=== PATIENT | female | born 1965 | race Caucasian/White ===

== ENCOUNTER 2021-05-15 08:29 | Outpatient (REF) | payer OTHER, SELFPAY ==
[2021-05-20 22:11] LABS: HPV 16 RNA NOT DETECTED (NOT DETECTED); HPV mRNA E6/E7 rflx Detected (Not Detected)
== END 2021-05-15 08:30 | disposition home or self-care (01) ==
LOC: HO.LAB 08:29
PROVIDERS: PCP Internal Medicine; Visit Provider Obstetrics & Gynecology
DX: Z01.411 Encounter for gynecological examination (general) (routine) with abnormal findings (principal); Z11.51 Encounter for screening for human papillomavirus (HPV); N87.0 Mild cervical dysplasia; N90.89 Other specified noninflammatory disorders of vulva and perineum
CPT/HCPCS: 87624; 87625; 88142

== ENCOUNTER 2021-05-30 08:58 | Outpatient (REF) | payer OTHER, SELFPAY | END 2021-05-30 08:59 | disposition home or self-care (01) | LOC: HO.LAB 08:58 | PROVIDERS: PCP Internal Medicine; Visit Provider Obstetrics & Gynecology | DX: N90.89 Other specified noninflammatory disorders of vulva and perineum (principal); B97.7 Papillomavirus as the cause of diseases classified elsewhere | CPT/HCPCS: 56605; 57454; 88305; 88312 ==

== ENCOUNTER → 2021-06-19 13:24 | Outpatient (BNVA) | payer OTHER, SELFPAY | PROVIDERS: Visit Provider Obstetrics & Gynecology | DX: B97.7 Papillomavirus as the cause of diseases classified elsewhere (principal); N90.89 Other specified noninflammatory disorders of vulva and perineum | CPT/HCPCS: 99212 ==

== ENCOUNTER → 2021-07-18 14:17 | Outpatient (BNVA) | payer OTHER, SELFPAY | PROVIDERS: PCP Internal Medicine; Visit Provider Obstetrics & Gynecology | DX: N90.89 Other specified noninflammatory disorders of vulva and perineum (principal) | CPT/HCPCS: 99212 ==

== ENCOUNTER 2021-08-19 08:18 | Outpatient (REF) | payer OTHER, SELFPAY ==
[2021-08-19 08:42] LABS: MANUAL DIFF FLAG NO
[2021-08-19 09:37] LABS: Basophils Percent Auto 0.4 % (0-2); Eosinophils Absolute Auto 0.2 X10*3/uL (0.0-0.4); Eosinophils Percent Auto 3.2 % (0-4); Hematocrit 45.6 % (37.0-47.0); Hemoglobin 14.9 g/dl (12.0-16.0); Imm Gran Abs Auto 0.01 X10*3/uL (0.00-0.03); Imm Gran Pct Auto 0.2 % (0.0-0.4); Lymphocytes Absolute Auto 1.8 X10*3/uL (1.2-4.9); Lymphocytes Percent Auto 34.7 % (20-40); Mean Corpuscular HGB Conc 32.7 g/dl (31.0-35.0); Mean Corpuscular Hemoglobin 29.5 pg (27.0-33.0); Mean Corpuscular Volume 90.3 fL (80.0-98.0); Mean Platelet Volume 10.1 fL (9.4-12.3); Monocytes Absolute Auto 0.5 X10*3/uL (0.1-1.2); Monocytes Percent Auto 8.9 % (2-11); Neutrophils Absolute Auto 2.7 x10*3/uL (2.0-8.3); Neutrophils Percent Auto 52.6 % (45-73); Platelet Count 271 X10*3/uL (160-400); Red Blood Count 5.05 X10*6/uL (4.20-5.50); Red Cell Distribution Width 11.9 % (11.0-16.0)
[2021-08-19 09:48] LABS: Alanine Aminotransferase 15 U/L (0-31); Albumin Level 4.1 g/dL (3.5-5.0); Alkaline Phosphatase 96 U/L (39-117); Anion Gap 11 (12-20); Aspartate Amino Transferase 17 U/L (5-31); Bilirubin Total 0.7 mg/dL (0.0-1.0); Blood Urea Nitrogen 17 mg/dL (9-16); Calcium 9.7 mg/dL (8.4-10.2); Carbon Dioxide 30 mmol/L (22-29); Chloride 101 mmol/L (96-108); Cholesterol 215 mg/dL; Estimated Glomerular Filt Rate > 60; Glucose Fasting 96 mg/dL (60-99); HDL Cholesterol 46 mg/dL; LDL Cholesterol Calculated 148 mg/dl; Potassium 4.8 mmol/L (3.3-5.1); Sodium 137 mmol/L (135-145); Total Protein 7.1 g/dL (6.5-8.0); Triglycerides 107 mg/dL
[2021-08-19 10:09] LABS: Thyroid Stimulating Hormone 0.49 uIU/mL (0.32-4.0)
== END 2021-08-19 08:19 | disposition home or self-care (01) ==
LOC: HO.LAB 08:18
PROVIDERS: PCP Internal Medicine; Visit Provider Internal Medicine
DX: Z00.00 Encounter for general adult medical examination without abnormal findings (principal); Z13.0 Encounter for screening for diseases of the blood and blood-forming organs and certain disorders involving the immune mechanism
CPT/HCPCS: 36415; 80053; 80061; 84443; 85025

== ENCOUNTER 2021-08-22 14:55 | Emergency (ER) | payer OTHER, SELFPAY ==
--- NOTE | ~2021-08-22 | CT_ITS ---
EXAMINATION: CT ABDOMEN AND PELVIS WITH CONTRAST CLINICAL INFORMATION: Diffuse abdominal pain. Rectal bleeding. COMPARISON: Abdominal ultrasound 12/15/2018 TECHNIQUE: Multidetector volumetric images were obtained from the superior aspect of the liver through the pubic symphysis following administration of 70 mL of Omnipaque 350 intravenous contrast. Sagittal and coronal reformatted images were obtained on the technologist's workstation. This CT examination was performed using dose optimization techniques as appropriate, variously including the following: *Automated exposure control *Adjustment of mA and/or kV according to patient size (this includes techniques or standardized protocols for targeted exams where dose is matched to indication/reason for exam; i.e. extremities or head) *Use of iterative reconstruction technique DLP: 743 mGy-cm FINDINGS: Visualized lung bases demonstrate mild dependent atelectasis. Partially visualized 1.7 cm nodular density of the left breast, nonspecific (image 2/751, series 4). The liver demonstrates normal size, contour and attenuation. There is an approximately 3 cm cyst of the left hepatic lobe. The gallbladder is normal in appearance. The pancreas, spleen and adrenal glands are unremarkable. Symmetrically enhancing kidneys. There is a 4 cm cyst within the lower pole of the left kidney which demonstrates subtle wall thickening medially. There is no hydronephrosis of either kidney. Normal caliber loops of small and large bowel. Circumferential mucosal thickening involving the splenic flexure and descending colon with mild adjacent pericolonic stranding. Normal appendix. Normal caliber abdominal aorta. No retroperitoneal lymphadenopathy. The bladder is normal in appearance. Unremarkable CT appearance of the uterus. 1.8 cm left adnexal cyst. No gross free pelvic fluid. No inguinal lymphadenopathy. Mild diffuse degenerative changes of the spine. Minimal anterolisthesis of L4 on L5. CT/CT abdomen pelvis w con IMPRESSION: -Diffuse circumferential mucosal thickening of the splenic flexure and descending colon with adjacent pericolonic stranding. Findings are most suggestive of colitis, likely infectious or inflammatory. -Hepatic and left renal cyst. Left renal cyst demonstrates mild wall thickening along its medial border. Further evaluation with nonemergent renal ultrasound may be warranted. -Partially visualized 1.7 cm nodular density of the left breast. A focal breast lesion is not excluded. Recommend correlation with recent mammogram/breast ultrasound if available. If not, nonemergent mammogram/breast ultrasound is recommended. Fleischner guidelines were followed.
[2021-08-22 16:04] VITALS: BP 118/75; PULSE 85; RESP 18; TEMP 36.8; O2SAT 96; BMI 30.9
[2021-08-22 18:04] LABS: MANUAL DIFF FLAG NO
[2021-08-22 18:06] LABS: Appearance Urine CLEAR; Color Urine YELLOW; Glucose Urine UA NEG (NEG); Leukocyte Esterase Urine NEG (NEG); Nitrite Urine NEG (NEG); PH 5.5 (5.0-8.0); Specific Gravity - Urine >= 1.030 (1.005-1.025); UACC Culture Trigger NO; Urine Blood 1+ (NEG); Urine Ketones NEG (NEG); Urine Protein NEG (NEG-TRACE)
[2021-08-22 18:07] LABS: Basophils Percent Auto 0.4 % (0-2); Eosinophils Absolute Auto 0.2 X10*3/uL (0.0-0.4); Eosinophils Percent Auto 2.3 % (0-4); Hematocrit 47.2 % (37.0-47.0); Hemoglobin 15.1 g/dl (12.0-16.0); Imm Gran Abs Auto 0.01 X10*3/uL (0.00-0.03); Imm Gran Pct Auto 0.1 % (0.0-0.4); Lymphocytes Absolute Auto 1.4 X10*3/uL (1.2-4.9); Lymphocytes Percent Auto 17.1 % (20-40); Mean Corpuscular Volume 90.8 fL (80.0-98.0); Mean Platelet Volume 9.3 fL (9.4-12.3); Monocytes Absolute Auto 0.6 X10*3/uL (0.1-1.2); Neutrophils Absolute Auto 5.8 x10*3/uL (2.0-8.3); Neutrophils Percent Auto 73.1 % (45-73); Platelet Count 264 X10*3/uL (160-400); White Blood Count 7.9 X10*3/uL (4.8-10.8)
[2021-08-22 18:14] LABS: WBC Urine 0 /HPF (0-4)
[2021-08-22 18:15] LABS: Bacteria Urine TRACE /LPF; RBC Urine 0-2 /HPF (0); Squamous Epithelial Cell Urine TRACE /LPF
[2021-08-22 18:19] LABS: Alanine Aminotransferase 19 U/L (0-31); Alkaline Phosphatase 100 U/L (39-117); Anion Gap 11 (12-20); Aspartate Amino Transferase 18 U/L (5-31); Bilirubin Total 0.3 mg/dL (0.0-1.0); Blood Urea Nitrogen 15 mg/dL (9-16); Calcium 9.5 mg/dL (8.4-10.2); Carbon Dioxide 29 mmol/L (22-29); Chloride 105 mmol/L (96-108); Creatinine Clr Calc Pharmacy 84.1; Estimated Glomerular Filt Rate > 60; Glucose Random 98 mg/dL (60-115); Potassium 4.8 mmol/L (3.3-5.1); Sodium 140 mmol/L (135-145); Total Protein 7.2 g/dL (6.5-8.0)
[2021-08-22 18:22] LABS: Influenza A Negative (Negative); Influenza B2 Negative (Negative)
[2021-08-22 18:40] VITALS: BP 128/79; PULSE 76; RESP 18; O2SAT 97
--- NOTE | 2021-08-22 18:41 | ED_ITS ---
HPI - GI Bleed General Chief complaint: GI Bleed Stated complaint: abd pain/blood in in stool Time Seen by Provider: 08/22/21 18:30 Source: patient Mode of arrival: ambulatory Limitations: no limitations History of Present Illness HPI Narrative: Patient comes to the emergency room complaining of diarrhea and rectal bleeding for 24 hours. Patient states that she has no significant abdominal pain, but feels very bloated. Patient had several episodes of diarrhea, then this morning patient started passing blood clots per rectum. Patient denies nausea or vomiting. No fever or chills. No history of Crohn's/ulcerative colitis. Patient had colonoscopy 3 years ago, states that she was told it was negative. Patient denies being on blood thinners. Patient denies chest pain, shortness of breath lightheadedness. Related Data Home Medications Medication Instructions Recorded Confirmed buprenorphine 12 mg-naloxone 3 mg 15 mg SUBLINGUAL DAILY 08/07/21 08/21/21 sublingual film (Suboxone) lorazepam 1 mg tablet 1 mg PO BID 08/07/21 08/21/21 Previous Rx's Medication Instructions Recorded lisinopril 20 mg tablet 20 mg PO DAILY #90 tab 07/25/21 clobetasol 0.05 % topical cream 1 appl TOPICAL BID 14 Days #45 g 08/07/21 levofloxacin 500 mg tablet 500 mg PO DAILY #9 tab 08/22/21 metronidazole 250 mg tablet 250 mg PO BID #19 tab 08/22/21 Allergies Allergy/AdvReac Type Severity Reaction Status Date / Time cortisone injections Allergy Unknown skin Uncoded 08/22/21 16:03 rash/burn Review of Systems Review of Systems: Constitutional : No Weight loss, No Fever, No Chills, No Night Sweats, No Fatigue, No Malaise ENT/Mouth : No Hearing loss, No Ear Pain, No Nasal Congestion, No Sinus Pain, No Hoarseness, No sore throat, No Rhinorrhea, No Swallowing Difficulty Eyes: No Eye Pain, No Swelling, No Redness, No Foreign Body, No Discharge, No Vision Changes Cardiovascular : No Chest Pain, No SOB, No Dyspnea on Exertion, No Orthopnea, No Edema, No Palpitations Respiratory : No Cough, No Sputum, No Wheezing, No Smoke Exposure, No Dyspnea Gastrointestinal : No Nausea, No Vomiting, complaining of Diarrhea, complaining of several episodes of rectal bleeding, passing blood clots per rectum. No Constipation, complaining of abdominal distension Genitourinary : no irregular bleeding, No Dysuria, No Urinary Frequency, No Hematuria, No Urinary Incontinence, No Urgency, No Flank Pain, No Urinary Flow Changes, No Hesitancy Musculoskeletal : No joint pain, No Myalgias, No Joint Swelling Skin : No Skin Lesions, No rash Neuro : No Weakness, No Numbness, No Paresthesias, No Loss of Consciousness, No Dizziness, No Headache Psych : No Anxiety/Panic, No Depression, No SI/HI/AH/VH, No Social Issues, Heme/Lymph: No Bruising, No Bleeding,No Lymphadenopathy Endocrine : No Polyuria, No Polydipsia, No Temperature Intolerance [facility] Past Medical History Medical History Dysplasia of cervix, low grade (BONG 1) HTN (hypertension) Substance abuse ANGELIA III (vulvar intraepithelial neoplasia III) Social History Social History Housing: Apartment Alcohol intake: current Alcohol intake frequency: holidays/special occasions only Patient Tobacco Use Status: Former Tobacco user e-Cigarette/Vaping Use: Never Used Second Hand Smoke Exposure: No Advance Directives: No service: No Current occupational status: employed Cognitive needs: No Hearing needs: No Vision needs: No Physical Exam Vital Signs: Vital Signs: Last Vital Signs Temp 98.3 F 08/22/21 16:04 Pulse 76 08/22/21 18:40 Resp 18 08/22/21 18:40 BP 128/79 08/22/21 18:40 Pulse Ox 97 08/22/21 18:40 BMI result Body Mass Index 30.9 Const: Other: Appearance: Alert. Oriented X3. No acute distress. Eyes: Pupils equal, round and reactive to light. ENT: Pharynx normal. Neck: Normal inspection. Neck supple. No lymph nodes noted. No crepitus CVS: Normal heart rate and rhythm. Pulses normal. Normal S1 and S2 Respiratory: No respiratory distress. Breath sounds normal. No Wheezing. No rales Abdomen: Soft and nontender. Slightly distended, no rigidity, no guarding, no rebound. Digital rectal exam positive for bright red blood per rectum, likely internal hemorrhoids Skin: Skin warm and dry. Normal skin color. Normal skin turgor. Extremities: No lower extremity edema. No Lacerations. No Rash Neuro: Oriented X 3. No motor deficit. No sensory deficit. Moving all extremities. No slurred speech. CN 2 through 12 grossly intact Psych: calm, cooperative, normal affect Course Course Course Narrative: Patient's hemoglobin and hematocrit are stable. At this time, patient states that she does not have significant abdominal pain, only rectal bleeding. Patient does not have abdominal pain. I discussed the labs and imaging with the patient, likely colitis. Patient was given the 1st dose of p.o. levofloxacin and metronidazole Discussed with the patient that if he has worsening abdominal pain, new symptoms, to return to emergency room MDM - GI Bleed Lab Data Result diagrams: 08/22/21 17:52 08/22/21 17:52 Labs: Lab Results 08/22/21 08/22/21 08/22/21 Range/Units 17:52 17:52 17:53 WBC 7.9 (4.8-10.8) X10*3/uL RBC 5.20 (4.20-5.50) X10*6/uL Hgb 15.1 (12.0-16.0) g/dl Hct 47.2 H (37.0-47.0) % MCV 90.8 (80.0-98.0) fL MCH 29.0 (27.0-33.0) pg MCHC 32.0 (31.0-35.0) g/dl RDW 12.0 (11.0-16.0) % Plt Count 264 (160-400) X10*3/uL MPV 9.3 L (9.4-12.3) fL Immature Gran % (Auto) 0.1 (0.0-0.4) % Neut % (Auto) 73.1 H (45-73) % Lymph % (Auto) 17.1 L (20-40) % [place] % (Auto) 7.0 (2-11) % Eos % (Auto) 2.3 (0-4) % Baso % (Auto) 0.4 (0-2) % Lymph # (Auto) 1.4 (1.2-4.9) X10*3/uL [place] # (Auto) 0.6 (0.1-1.2) X10*3/uL Eos # (Auto) 0.2 (0.0-0.4) X10*3/uL Baso # (Auto) 0.0 (0.0-0.2) X10*3/uL Abs Immat Gran (auto) 0.01 (0.00-0.03) X10*3/uL Absolute Neuts (auto) 5.8 (2.0-8.3) x10*3/uL Absolute Nucleated RBC 0.000 (0.0-0.012) X10*3/uL Nucleated RBC % (auto) 0.0 (0.0-0.2) /100WBC Sodium 140 (135-145) mmol/L Potassium 4.8 (3.3-5.1) mmol/L Chloride 105 (96-108) mmol/L Carbon Dioxide 29 (22-29) mmol/L Anion Gap 11 L (12-20) BUN 15 (9-16) mg/dL Creatinine 0.82 (0.5-1.4) mg/dL Estim Creat Clear Calc 84.1 Estimated GFR > 60 Random Glucose 98 (60-115) mg/dL Calcium 9.5 (8.4-10.2) mg/dL Total Bilirubin 0.3 (0.0-1.0) mg/dL AST 18 (5-31) U/L ALT 19 (0-31) U/L Alkaline Phosphatase 100 (39-117) U/L Total Protein 7.2 (6.5-8.0) g/dL Albumin 4.0 (3.5-5.0) g/dL Urine Color Urine Appearance Urine pH (5.0-8.0) Ur Specific [place] (1.005-1.025) Urine Protein (NEG-TRACE) MG/DL Urine Glucose (UA) (NEG) MG/DL Urine Ketones (NEG) MG/DL Urine Blood (NEG) Urine Nitrite (NEG) Ur Leukocyte Esterase (NEG) Urine RBC (0) /HPF Urine WBC (0-4) /HPF Ur Squamous Epith Cells /LPF Urine Bacteria /LPF Stool Occult Blood (NEGATIVE) Influenza Type A (BARON) Negative (Negative) Influenza Type B (BARON) Negative (Negative) Influenza A & B Note See Note 08/22/21 08/22/21 Range/Units 17:53 18:45 WBC (4.8-10.8) X10*3/uL RBC (4.20-5.50) X10*6/uL Hgb (12.0-16.0) g/dl Hct (37.0-47.0) % MCV (80.0-98.0) fL MCH (27.0-33.0) pg MCHC (31.0-35.0) g/dl RDW (11.0-16.0) % Plt Count (160-400) X10*3/uL MPV (9.4-12.3) fL Immature Gran % (Auto) (0.0-0.4) % Neut % (Auto) (45-73) % Lymph % (Auto) (20-40) % [place] % (Auto) (2-11) % Eos % (Auto) (0-4) % Baso % (Auto) (0-2) % Lymph # (Auto) (1.2-4.9) X10*3/uL [place] # (Auto) (0.1-1.2) X10*3/uL Eos # (Auto) (0.0-0.4) X10*3/uL Baso # (Auto) (0.0-0.2) X10*3/uL Abs Immat Gran (auto) (0.00-0.03) X10*3/uL Absolute Neuts (auto) (2.0-8.3) x10*3/uL Absolute Nucleated RBC (0.0-0.012) X10*3/uL Nucleated RBC % (auto) (0.0-0.2) /100WBC Sodium (135-145) mmol/L Potassium (3.3-5.1) mmol/L Chloride (96-108) mmol/L Carbon Dioxide (22-29) mmol/L Anion Gap (12-20) BUN (9-16) mg/dL Creatinine (0.5-1.4) mg/dL Estim Creat Clear Calc Estimated GFR Random Glucose (60-115) mg/dL Calcium (8.4-10.2) mg/dL Total Bilirubin (0.0-1.0) mg/dL AST (5-31) U/L ALT (0-31) U/L Alkaline Phosphatase (39-117) U/L Total Protein (6.5-8.0) g/dL Albumin (3.5-5.0) g/dL Urine Color YELLOW Urine Appearance CLEAR Urine pH 5.5 (5.0-8.0) Ur Specific [place] >= 1.030 H (1.005-1.025) Urine Protein NEG (NEG-TRACE) MG/DL Urine Glucose (UA) NEG (NEG) MG/DL Urine Ketones NEG (NEG) MG/DL Urine Blood 1+ H (NEG) Urine Nitrite NEG (NEG) Ur Leukocyte Esterase NEG (NEG) Urine RBC 0-2 (0) /HPF Urine WBC 0 (0-4) /HPF Ur Squamous Epith Cells TRACE /LPF Urine Bacteria TRACE /LPF Stool Occult Blood POSITIVE (NEGATIVE) Influenza Type A (BARON) (Negative) Influenza Type B (BARON) (Negative) Influenza A & B Note Discharge Plan Discharge Clinical Impression: Colitis Patient Disposition: Home, Self-Care Instructions: Colitis (ED) Additional Instructions: Please follow-up with your primary care physician tomorrow. If you have any worsening or new symptoms, please return to the emergency room or call 911 Prescriptions: New levofloxacin 500 mg tablet 500 mg PO DAILY Qty: 9 0RF metronidazole 250 mg tablet 250 mg PO BID Qty: 19 0RF No Action lisinopril 20 mg tablet 20 mg PO DAILY Qty: 90 8RF buprenorphine-naloxone [Suboxone] 12-3 mg film 15 mg sublingual DAILY 0RF lorazepam 1 mg tablet 1 mg PO BID 0RF clobetasol 0.05 % cream 1 appl topical BID 14 Days Qty: 45 3RF
[2021-08-22 18:51] LABS: OBS Int Ctl Valid YES; OBS1 POSITIVE (NEGATIVE)
[2021-08-22] MEDS: iohexoL 350 MG/ML 100 ML INFUS..BTL IV (19:22)
[2021-08-22] MEDS: metroNIDAZOLE 500 MG TABLET 250 MG PO (20:42)
[2021-08-22] MEDS: levoFLOXacin 500 MG TABLET PO (20:42)
[2021-08-22 20:43] VITALS: BP 124/70; PULSE 70; RESP 18; TEMP 36.9; O2SAT 98
== END 2021-08-22 20:44 | disposition home or self-care (01) ==
PROVIDERS: Emergency Provider Emergency Medicine; PCP Internal Medicine
DX: K52.9 Noninfective gastroenteritis and colitis, unspecified (principal); F11.20 Opioid dependence, uncomplicated
CPT/HCPCS: 74177; 80053; 81001; 82272; 85025; 87502; 99284; Q9967

== ENCOUNTER 2021-09-19 10:54 | Outpatient (REF) | payer OTHER, SELFPAY ==
--- NOTE | ~2021-09-19 | MM_ITS ---
EXAMINATION: MM DIAGNOSTIC DIGITAL BREAST TOMOSYNTHESIS, BILATERAL CLINICAL INFORMATION: Question of focal nodular density inferior lateral left breast on CT abdomen performed emergently for diffuse abdominal pain and rectal bleeding. The lifetime risk of breast cancer based on the Tyrer-Cuzick Model is 7%. COMPARISON: Mammography: 12/31/2017, 08/28/2016; CT abdomen 08/22/2021. TECHNIQUE: Digital breast tomosynthesis is performed in both the craniocaudal and mediolateral oblique views along with computer-aided detection (CAD). Synthesized 2D images are generated from the tomosynthesis. FINDINGS: The breasts are heterogeneously dense, which may obscure small masses (ACR BI-RADS breast composition Category c). Parenchymal pattern is similar to prior studies. There is no significant mass or architectural abnormality or developing density. Finding on recent CT likely represents margin of normal fibroglandular tissue in the CT [id number]. There are no abnormal calcifications. Small stable nodule anterior upper left breast on MLO view is stable. The axilla and skin contours are unremarkable. No significant changes from prior studies. Results are discussed with the patient at time of visit. MM/MM tomosynthesis diagnostic BI IMPRESSION: -No mammographic evidence of malignancy. -No significant changes from prior exams. ASSESSMENT: BI-RADS 2: Benign RECOMMENDATION: Routine annual mammography screening. This patient's information was entered into a reminder system with a target due date for their next mammogram.
== END 2021-09-19 10:55 | disposition home or self-care (01) ==
LOC: HO.MAMMO 10:54
PROVIDERS: Visit Provider Internal Medicine
DX: R92.2 Inconclusive mammogram (principal)
CPT/HCPCS: 77062; 77066

== ENCOUNTER → 2021-10-30 13:21 | Outpatient (BNVA) | payer OTHER, SELFPAY | PROVIDERS: PCP Internal Medicine; Referring Provider Internal Medicine; Visit Provider Nurse Practitioner | DX: K57.92 Diverticulitis of intestine, part unspecified, without perforation or abscess without bleeding (principal) | CPT/HCPCS: 99202 ==

== ENCOUNTER → 2022-06-25 09:54 | Outpatient (BNVA) | payer OTHER, SELFPAY | PROVIDERS: PCP Internal Medicine; Visit Provider Obstetrics & Gynecology | DX: Z13.89 Encounter for screening for other disorder (principal) ==

== ENCOUNTER 2022-07-09 13:30 | Outpatient (REF) | payer OTHER, SELFPAY ==
[2022-07-12 00:39] LABS: HPV mRNA E6/E7 rflx Not Detected (Not Detected)
== END 2022-07-09 13:31 | disposition home or self-care (01) ==
LOC: HO.LNP 13:30
PROVIDERS: PCP Internal Medicine; Visit Provider Obstetrics & Gynecology
DX: Z01.419 Encounter for gynecological examination (general) (routine) without abnormal findings (principal); B97.7 Papillomavirus as the cause of diseases classified elsewhere
CPT/HCPCS: 87624; 88142; 99211

== ENCOUNTER 2023-08-05 14:27 | Outpatient (AMB) | payer OTHER, SELFPAY ==
[2023-08-05 14:33] VITALS: BP 116/70; BMI 32.0
--- NOTE | 2023-08-05 14:33 | MHC.OFFVIS ---
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 No complaints. 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, low grade (BONG 1) HTN (hypertension) Surgical History History of colonoscopy Social History Housing: Apartment Alcohol intake: current Alcohol intake frequency: holidays/special occasions only Patient Tobacco Use Status: Former Tobacco user Tobacco use type: Cigarette e-Cigarette/Vaping Use: Never Used Second Hand Smoke Exposure: No service: No Current occupational status: employed Cognitive needs: No Hearing needs: No Vision needs: Yes Female Reproductive History Menstrual Age of Menarche: 10 control method: none Age of menopause: 46 Total pregnancies: 2 Full term: 1 Number of Living Children: 1 Ectopics: 1 Date of last pap smear: 07/10/22 History of abnormal pap smear: Yes (HPV Positive 2020) History of STI: No Date of Mammogram: 09/19/21 History of abnormal mammogram: Yes Review of Systems Const All systems reviewed & are unremarkable except as noted in HPI and below Card Reports as per HPI Resp Reports as per HPI GI Reports as per HPI and Reports no additional complaints Reports as per HPI Physical Exam Vital Signs: Last Vital Signs BP 116/70 08/05/23 14:33 BMI result Body Mass Index 32.0 Const General: cooperative, healthy appearing and comfortable Chest Chest palpation & inspection: normal inspection of the chest and normal palpation of entire chest wall Breast/axilla inspection: normal inspection of the breasts and normal inspection of the axillae Breast/axilla palpation: normal palpation of the breasts, normal palpation of the axillae and no axillary lymphadenopathy Resp Effort & Inspection: normal respiratory effort Auscultation: clear to auscultation bilaterally Percussion: percussion normal Cardio Palpation: normal PMI Rate: regular rate Rhythm: regular rhythm Heart sounds: no murmurs and no rubs Peripheral pulses: Peripheral pulses 2+ throughout GI Inspection: Yes normal to inspection Palpation (GI): Soft to palpation, nontender, no guarding, not rigid and No hepatosplenomegaly present Percussion: Yes normal to percussion Auscultation: normal bowel sounds Rectal Exam - Female: deferred General: Yes bladder normal to palpation External Female Exam: No lesion Speculum Exam - Vagina: normal appearance of the vagina, normal palpation, normal vaginal discharge and not erythematous Speculum Exam - Cervix: normal appearance of the cervix and normal palpation Bimanual exam- vagina & uterus: normal bimanual exam, normal palpation, uterine size normal, bladder normal to palpation, consistency normal and normal palpation Bimanual Exam- Adnexa, other: normal adnexae, no masses and no tenderness Assessment & Plan Assessment & Plan (1) Well woman exam: Code(s): Z01.419 - Encounter for gynecological examination (general) (routine) without abnormal findings Plan: Co testing not indicated this. Counseled the patient about the recommended dietary allowance of 1200 mg of Calcium & 600 IU of vitamin D. Mammogram ordered. The patient was instructed to perform monthly self-breast exams and periodic perineal inspections because of the history of ANGELIA 3 and to report any hard areas open sores or any abnormal findings and schedule annual exam in a year. All questions answered and the patient verbalized understanding. Orders: Orders MM tomosynthesis screening BI Today Z12.31 - Encounter for screening mammogram for malignant neoplasm of breast Coding Level of Care Code Est Pt Prev Care 40-64y(97388) Diagnoses Well woman exam Z01.419
== END 2023-08-05 14:54 | disposition home or self-care (01) ==
LOC: HO.HWS 14:28
PROVIDERS: PCP Internal Medicine; Visit Provider Obstetrics & Gynecology
DX: Z01.419 Encounter for gynecological examination (general) (routine) without abnormal findings (principal)
CPT/HCPCS: 99396

== ENCOUNTER → 2023-08-05 14:27 | Outpatient (BNVA) | payer OTHER, SELFPAY | PROVIDERS: PCP Internal Medicine; Visit Provider Obstetrics & Gynecology | DX: Z01.419 Encounter for gynecological examination (general) (routine) without abnormal findings (principal) | CPT/HCPCS: 99396 ==

== ENCOUNTER 2024-09-21 14:29 | Outpatient (AMB) | payer OTHER, SELFPAY ==
--- NOTE | 2024-09-21 14:30 | A.OFFPC_ITS ---
Vital Signs 09/21/24 14:39 Height 5 ft 6 in Weight 163 lb BMI 26.3 BP 138/76 Blood Pressure Location Lt brachial Position Sitting Pulse 86 Pulse Source Pulse Oximeter Temp 96.9 F Temp Source Temporal Artery Scan Pulse Oximetry (%) 97 Oxygen Delivery Method Room Air Intake Visit Reasons: KITTY from Dr. 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 Accompanied by: Self / Same As Patient Allergies cortisone injections Allergy (Unknown, Uncoded 09/21/24 14:45) skin rash/burn Medication List - Last Reconciled 09/21/24 by ULICES Chaudhry buprenorphine-naloxone 12-3 mg (Suboxone) 15 mg sublingual DAILY clobetasol 0.05% 1 appl topical BID 2 weeks clonazepam 1 mg PO BID PRN clotrimazole-betamethasone 1-0.05 % 1 appl topical BID PRN 2 weeks lisinopril 20 mg PO DAILY Tobacco use date assessed: 09/21/24 Dental Screening Dental Screen Date: 09/21/24 Did you have a dental visit in the last 12 months?: Yes Did you have a dental problem in the last 6 months where you did not have access to dental care?: No Was dental information given to patient?: Patient has dentist HPI KITTY from Dr. 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 HPI Details The patient is a 59-year-old female presenting to transition care from Dr. Santiago who retired [facility]: hypertension, substance use disorder management, and grief-related psychological symptoms. Lisinopril is currently prescribed for blood pressure management, alongside clonazepam for episodic anxiety relief. The patient?s bereavement includes highly emotional losses of several close relatives, resulting in stress, weight change, and emotional volatility. Maintaining recovery in substance use, she takes Suboxone which was initiated approximately seven years ago in [place], and now she expresses intent to eventually cease it due to concerns around age-related cardiovascular risks. Past medical evaluations confirmed diverticulitis and possibly related colitis after episodes of significant bright red rectal bleeding in 2021. The patient also notes previous preventive procedures for HPV-related precancerous vulvar lesions, achieving clearance prior to experiencing intestinal symptoms. Regular mammograms have not detect any breast lesions despite initial concerns saw on abdominal CT. Her historical lipid panel raised concerns, including earlier LDL results elevated beyond desired thresholds, prompting current trials of natural cholesterol-lowering interventions. She shares awareness of common conflicting screening advice but understands regularity remains crucial for thorough health maintenance. Scheduled routine preventative screenings and therapeutic balance amidst ongoing life adjustments were emphasized during the visit, with agreed follow-up arrangements to revisit symptomatic and goal-oriented progress. [facility] Medical History Substance abuse ANGELIA III (vulvar intraepithelial neoplasia III) Dysplasia of cervix, low grade (BONG 1) HTN (hypertension) Surgical History History of colonoscopy Social History Housing: Apartment Alcohol intake: current Alcohol intake frequency: holidays/special occasions only Patient Tobacco Use Status: Former Tobacco user Tobacco use type: Cigarette e-Cigarette/Vaping Use: Never Used Second Hand Smoke Exposure: No service: No Current occupational status: employed Cognitive needs: No Hearing needs: No Vision needs: Yes Female Reproductive History Menstrual Age of Menarche: 10 Questionnaire PHQ-9 Over the last 2 weeks, how often have you been bothered by any of the following problems? 1. Little interest or pleasure in doing things: not at all 2. Feeling down, depressed, or hopeless: not at all 3. Trouble falling or staying asleep, or sleeping too much: not at all 4. Feeling tired or having little energy: not at all 5. Poor appetite or overeating: not at all 6. Feeling bad about yourself - or that you are a failure or have let yourself or your family down: not at all 7. Trouble concentrating on things, such as reading the newspaper or watching television: not at all 8. Moving or speaking so slowly that other people could have noticed. Or the opposite - being so fidgety or restless that you have been moving around a lot more than usual: not at all 9. Thoughts that you would be better off or of hurting yourself in some way: not at all Total score: 0 Depression Screening Interpretation: Negative Depression Screening Done: Yes 80229 - PHQ-9 Billing: Yes Source: Developed by Drs. Tj Chapa, Juliet B.W. Jose Alejandro Vega and colleagues, with an educational jean from [employer]. Thrive Questionnaire Date Thrive assessed: 09/21/24 I am a: Parent/Caregiver What is your living situation today?: I have a steady place to live Within the past 12 months, did the food you bought not last and you didn't have the money to get more?: Never true Within the past 12 months, did you worry whether your food would run out before you got money to buy more?: Sometimes True Do you have trouble paying for medicines?: No Do you have trouble getting transportation to medical appointments?: No Do you have trouble paying your heating and electricity bill?: No Do you have trouble taking care of your child, family member or friend?: No Do you have trouble with day-to-day activities such as bathing, preparing meals, shopping, managing finances, etc.?: No Are you currently unemployed and looking for a job?: No Are you interested in more education?: I choose not to answer this question Please select the resources that you would like help with: None Currently or been in a relationship where the following occur: No concerns reported THRIVE Score: 1 AUDIT C Alcohol Use Questionnaire (AUDIT-C) 1. How often do you have a drink containing alcohol?: Never 3. How often do you have six or more drinks on one occasion?: Never Total Score: 0 KEMAR-7 AMB Questionnaire KEMAR-7 Date KEMAR - 7 assessed: 09/21/24 Feeling nervous, anxious, or on edge: 3 = Nearly every day Not being able to stop or control worryin = More than half the days Worrying too much about different things: 3 = Nearly every day Being so restless that it is hard to sit still: 0 = Not at all Becoming easily annoyed or irritable: 0 = Not at all Feeling afraid as if something awful might happen: 3 = Nearly every day Source: Developed by Drs. Tj Chapa, Jose Alejandro Hairston and colleagues, with an educational jean from [employer]. KEMAR-7 Assessment Billing KEMAR-7 Assessment Tool: KEMAR-7 Assessment 73773 Review of Systems Const Denies headache(s) Eyes Denies loss of vision ENT Denies vertigo, Denies dizziness, Denies headache(s) and Denies sore throat Card Denies chest pain, Denies leg edema and Denies lightheadedness Resp Denies cough, Denies hemoptysis and Denies wheezing GI Denies abdominal pain, Denies melena, Denies constipation, Denies diarrhea and Denies vomiting Denies urinary frequency, Denies dysuria and Denies urinary urgency Neuro Denies Abnormal speech present, Denies behavioral changes, Denies vertigo, Denies dizziness, Denies headache(s), Denies loss of vision and Denies memory loss Psych Reports anxiety, Denies behavioral changes, Reports depression, Denies memory loss and Denies panic attacks Mehrdad/Lymph Denies easy bleeding and Denies easy bruising Aller/Immun Denies wheezing Physical exam (Primary Care) Vital Signs: Last Vital Signs Temp 96.9 F 09/21/24 14:39 Pulse 86 09/21/24 14:39 BP 138/76 09/21/24 14:39 Pulse Ox 97 09/21/24 14:39 Oxygen Delivery Method Room Air 09/21/24 14:39 BMI result Body Mass Index 26.3 Tobacco/Smoking Status: Tobacco use Status Tobacco use date assessed 09/21/24 09/21/24 14:45 Patient Tobacco Use Status Former Tobacco user 09/21/24 14:30 Tobacco use type Cigarette 09/21/24 14:30 e-Cigarette/Vaping Use Never Used 09/21/24 14:30 PHQ-9: PHQ-9 Score PHQ-9: Total score 0 09/21/24 14:45 Depression Screening Interpretation: Negative Thrive Assessment: Date of Thrive Assessment Date Thrive assessed 09/21/24 09/21/24 14:45 Currently or been in a relationship where the following occur: No concerns reported Const General: healthy appearing, no acute distress, alert and awake Nutritional Appearance: well nourished Orientation/consciousness: oriented to person, oriented to place and oriented to time HENMT Ears: external ears normal General nose exam: Normal external nose present Eyes Conjunctivae: conjunctivae normal Sclerae: sclerae normal Pupils: Equal, round and reactive pupils present Neck Neck: Yes no lymphadenopathy and Yes no JVD Thyroid: Thyroid normal Carotids: no bruits Resp Effort & Inspection: normal respiratory effort and not tachypneic Auscultation: no crackles, no rales, no rhonchi and no wheezes Cardio Rate: regular rate Rhythm: regular rhythm Heart sounds: no murmurs and normal S1 and S2 GI Palpation (GI): Soft to palpation, nontender, no hepatomegaly and no splenomegaly Auscultation: normal bowel sounds Skin General skin exam: no rashes or lesions noted and dry skin Neuro General: oriented to person, oriented to place and oriented to time Cranial nerves: Yes Equal, round and reactive pupils present Speech: No Abnormal speech present Gait exam (Neuro): Normal gait present Motor exam (neuro): no tremor noted Extrem Right upper extremity: full ROM Left upper extremity: full ROM Right lower extremity: full ROM; no edema Left lower extremity: full ROM; no edema Psych Mental Status: mental status grossly normal Speech and movement: Normal speech and movement present Affect: normal affect Attitude: cooperative Thought process: Normal thought process present Coding Level of Care Code Est Pt Level 4 (69425) Diagnoses Substance abuse F19.10 Hypertension, unspecified type I10 Hypertension type: unspecified Anxiety F41.9 Additional Codes KEMAR-7 Assessment Billing - KEMAR-7 Assessment Tool: KEMAR-7 Assessment 92716 ([id number]) PHQ-9 - 62981 - PHQ-9 Billing: Yes ([id number]) Time Spent (min) 38 Assessment & Plan Assessment & Plan (1) Substance abuse: Code(s): F19.10 - Other psychoactive substance abuse, uncomplicated Category: Medical (2) HTN (hypertension): Code(s): I10 - Essential (primary) hypertension Category: Medical Qualifiers: Hypertension type: unspecified Qualified Code(s): I10 - Essential (primary) hypertension (3) Anxiety: Code(s): F41.9 - Anxiety disorder, unspecified Category: Medical Plan Continuing Lisinopril use and clonazepam adaptation strategically addresses primary blood pressure and anxiety management, respectively. Sustained therapeutic engagement will provide psychological anchor, reevaluating Suboxone alignment once stress declination is clearer. Periodic lipid panel analysis will guide cholesterol-level monitoring, reinforcing a selective non-pharmaceutical approach. Normative mammogram and GI evaluations check continuity remain foundational for maintenance, bolstering proactive care objectives. Orders: Orders Complete Blood Count Auto Diff Today I10 - Essential (primary) hypertension, K 57.92 - Diverticulitis of intestine, part unspecified, without perforation or abscess without bleeding, Z00.00 - Encounter for general adult medical examination without abnormal findings UA CC w/rflx Micro + Cult Today I10 - Essential (primary) hypertension, K57.92 - Diverticulitis of intestine, part unspecified, without perforation or abscess without bleeding, Z00.00 - Encounter for general adult medical examination without abnormal findings TSH reflex Free T4 Today I10 - Essential (primary) hypertension, K57.92 - Diverticulitis of intestine, part unspecified, without perforation or abscess without bleeding, Z00.00 - Encounter for general adult medical examination without abnormal findings Comprehensive [place]. Panel Fast Today I10 - Essential (primary) hypertension, K57.92 - Diverticulitis of intestine, part unspecified, without perforation or abscess without bleeding, Z00.00 - Encounter for general adult medical examination without abnormal findings Vitamin D 25-OH Total Today I10 - Essential (primary) hypertension, K57.92 - Diverticulitis of intestine, part unspecified, without perforation or abscess without bleeding, Z00.00 - Encounter for general adult medical examination without abnormal findings Lipid Panel Today I10 - Essential (primary) hypertension, K57.92 - Diverticulitis of intestine, part unspecified, without perforation or abscess without bleeding, Z00.00 - Encounter for general adult medical examination without abnormal findings Medications: Refilled lisinopril 20 mg PO DAILY 90 tabs 8RF
[2024-09-21 14:39] VITALS: BP 138/76; PULSE 86; TEMP 36.1; O2SAT 97; BMI 26.3
--- OUTSIDE RECORDS SUMMARY | 2024-09-21 16:53 | XMS_ITS | Clinical Summary ---
Author Organization [address] Address [address] [place] [phone] Phone Care Team Providers Care Landscape Manager Name Role Phone Priyank Santiago MD Primary Care Provider [phone] Allergies Active Allergy Reactions Criticality Noted Date Comments Cortisone 12/13/2017 Immunizations Name Administration Dates Next Due Tdap 12/13/2017 Social History Tobacco Use Types Packs/Day Years Used Date Smoking Tobacco: Former Smokeless Tobacco: Never Alcohol Use Standard Drinks/Week Comments No 0 (1 standard drink = 0.6 oz pur e alcohol) Comments Unknown Sex and Gender Information Value Date Recorded Sex Assigned at Not on file Legal Sex Female 5:01 PM EDT Gender Identity Not on file Sexual Orientation Not on file Last Filed Vital Signs Vital Sign Reading Time Taken Comments Blood Pressure 128/75 12/13/2017 9:23 PM EDT Pulse 78 12/13/2017 9:23 PM EDT Temperature 36.8 ??C (98.3 ??F) 12/13/2017 9:23 PM ED T Respiratory Rate 17 12/13/2017 9:23 PM EDT Oxygen Saturation 100% 12/13/2017 9:23 PM EDT Inhaled Oxygen Concentration - - Weight 81.6 kg (180 lb) 12/13/2017 5:08 PM EDT Height 167.6 cm (5' 6 ) 12/13/2017 5:08 PM EDT Body Mass Index 29.05 12/13/2017 5:08 PM EDT Plan of Treatment Health Maintenance Due Date Last Done Comments HIV screening 02/23/1977 Hepatitis C screening 02/23/1982 Cervical cancer screening 02/23/1985 Breast cancer screening 2004 Lipid disorder screening 2004 Colon cancer screening, Colonoscopy 02/23/2009 Diabetes screening 02/23/2009 Pneumococcal Vaccine (50+ ye ars) (1 of 1 - PCV) 02/23/2014 Shingles vaccine (Shingrix) (1 of 2 - Shingrix (RZV) 2 Dose Standard Series) 02/23/2014 Covid-19 vaccine series (1 - 2023- season) 2024 Influenza vaccine 02/08/2025 Tetanus adult (Td q 10,TDAP once) 12/14/2027 018 RSV Immunization (1 - 1-dose 75+ series) 02/23/2039 Meningococcal Vaccine Aged Out No walter harshil eligible based on patient's age to complete this topic Pneumococcal Vaccine (2 - 49 years) Aged Out No longer eligible b ased on patient's age to complete this topic Insurance [id number] MEDICAID [id number] MEDICAID [id number] MEDICAID Care Teams Landscape Manager Relationship Specialty Start Date End Date Priyank Santiago MD [address] [place] [address] [place] [phone] PCP - General Internal Medicine 12/13/17
== END 2024-09-21 15:06 | disposition home or self-care (01) ==
LOC: HO.HMCH 14:29
PROVIDERS: PCP Internal Medicine
DX: F19.10 Other psychoactive substance abuse, uncomplicated (principal); I10 Essential (primary) hypertension; F41.9 Anxiety disorder, unspecified

== ENCOUNTER → 2024-09-21 14:29 | Outpatient (BNVA) | payer OTHER, SELFPAY | PROVIDERS: PCP Internal Medicine | DX: F19.10 Other psychoactive substance abuse, uncomplicated (principal); F41.9 Anxiety disorder, unspecified; I10 Essential (primary) hypertension | CPT/HCPCS: 96127; 99212 ==

== ENCOUNTER 2025-02-01 08:51 | Outpatient (REF) | payer OTHER, SELFPAY ==
[2025-02-01 09:22] LABS: MANUAL DIFF FLAG NO
--- OUTSIDE RECORDS SUMMARY | 2025-02-01 09:24 | XMS_ITS | Clinical Summary ---
Author Organization [address] Address [address] [place] [phone] Phone Care Team Providers Care Cafe Attendant Name Role Phone Priyank Santiago MD Primary Care Provider [phone] Allergies Active Allergy Reactions Criticality Noted Date Comments Cortisone 12/13/2017 Immunizations Immunization Administration Dates Next Due Tdap 12/13/2017 Social [...] 78 12/13/2017 9:23 PM EDT Temperature 36.8 C (98.3 F) 12/13/2017 9:23 PM EDT Respiratory Rate 17 12/13/2017 9:23 PM EDT [...] (1 - 1-dose 75+ series) 02/23/2039 Meningococcal B Vaccine Aged Out No l onger eligible based on patient's age to complete this topic Meningococcal Vaccine Aged Out No walter harshil eligible based on patient's age to complete this topic Insurance [id number] MEDICAID [id number] MEDICAID [id number] MEDICAID Care Teams Cafe Attendant Relationship Specialty Start Date End Date Priyank Santiago MD [address] [place] [address] [place] [phone] PCP - General Internal Medicine 12/13/17
[2025-02-01 09:52] LABS: Hematocrit 40.4 % (37.0-47.0); Hemoglobin 13.6 g/dl (12.0-16.0); Imm Gran Abs Auto 0.01 X10*3/uL (0.00-0.03); Imm Gran Pct Auto 0.2 % (0.0-0.4); Lymphocytes Absolute Auto 1.6 X10*3/uL (1.2-4.9); Mean Corpuscular HGB Conc 33.7 g/dl (31.0-35.0); Mean Corpuscular Hemoglobin 29.8 pg (27.0-33.0); Mean Corpuscular Volume 88.6 fL (80.0-98.0); NRBC Abs Auto 0.000 X10*3/uL (0.0-0.012); NRBC Pct Auto 0.0 /100WBC (0.0-0.2); Platelet Count 227 X10*3/uL (160-400); Red Blood Count 4.56 X10*6/uL (4.20-5.50); White Blood Count 4.8 X10*3/uL (4.8-10.8)
[2025-02-01 10:23] LABS: Alanine Aminotransferase 14 U/L (0-31); Albumin Level 4.2 g/dL (3.5-5.0); Alkaline Phosphatase 80 U/L (39-117); Anion Gap 12 (12-20); Aspartate Amino Transferase 20 U/L (5-31); Blood Urea Nitrogen 15 mg/dL (9-16); Calcium 9.4 mg/dL (8.4-10.2); Carbon Dioxide 28 mmol/L (22-29); Chloride 106 mmol/L (96-108); Cholesterol 204 mg/dL (<200); Estimated Glomerular Filt Rate > 60; HDL Cholesterol 48 mg/dL (>40); Potassium 4.1 mmol/L (3.3-5.1); Sodium 142 mmol/L (135-145); Total Protein 6.9 g/dL (6.5-8.0); Triglycerides 100 mg/dL (<150)
== END 2025-02-01 08:52 | disposition home or self-care (01) ==
LOC: HO.LAB 08:51
DX: Z00.00 Encounter for general adult medical examination without abnormal findings (principal); K57.92 Diverticulitis of intestine, part unspecified, without perforation or abscess without bleeding; I10 Essential (primary) hypertension
CPT/HCPCS: 36415; 80053; 80061; 82306; 84443; 85025

== ENCOUNTER 2025-03-01 15:47 | Outpatient (AMB) | payer OTHER, SELFPAY ==
--- NOTE | 2025-03-01 15:56 | MHC.PC.OV ---
Vital Signs 03/01/25 15:57 Height 5 ft 6 in Weight 155 lb 4 oz BMI 25.1 BP 136/68 Blood Pressure Location Lt brachial Position Sitting Pulse 90 Pulse Source Pulse Oximeter Temp 97.0 F Temp Source Temporal Artery Scan Pulse Oximetry (%) 97 Oxygen Delivery Method Room Air Intake Visit Reasons: hld/htn, resched Allergies cortisone injections Allergy (Unknown, Uncoded 03/01/25 16:17) skin rash/burn Medication List - Last Reconciled 03/01/25 by ULICES Chaudhry buprenorphine-naloxone 8-2 mg 1.5 tabs sublingual DAILY clobetasol 0.05% 1 appl topical BID 2 weeks clonazepam 1 mg PO BID PRN clotrimazole-betamethasone 1-0.05 % 1 appl topical BID PRN 2 weeks lisinopril 20 mg PO DAILY Tobacco use date assessed: 03/01/25 Dental Screening Dental Screen Date: 03/01/25 Did you have a dental visit in the last 12 months?: No Did you have a dental problem in the last 6 months where you did not have access to dental care?: No Was dental information given to patient?: No HPI hld/htn, resched HPI Details The patient is a 60-year-old female presenting for a routine follow-up to monitor her cholesterol levels and blood pressure. The patient has a history of hyperlipidemia, with recent lab results showing a decrease in LDL cholesterol from 148 mg/dL to 136 mg/dL, indicating improvement. She is managing her cholesterol levels through natural methods and regular monitoring. The patient reports a history of hematuria, with a small amount of blood detected in her urine during a previous test in 2021. Potential causes discussed include kidney stones, cysts, or elevated blood pressure, but no definitive cause has been identified. The patient is also experiencing prehypertension, with recent blood pressure readings around 136/68 mmHg. She is aware of the changing guidelines for blood pressure management and is comfortable with her current readings. [facility] Medical History Substance abuse ANGELIA III (vulvar intraepithelial neoplasia III) Dysplasia of cervix, low grade (BONG 1) HTN (hypertension) Surgical History History of colonoscopy Social History Housing: Apartment Alcohol intake: current Alcohol intake frequency: holidays/special occasions only Patient Tobacco Use Status: Former Tobacco user Tobacco use type: Cigarette e-Cigarette/Vaping Use: Never Used Second Hand Smoke Exposure: No service: No Current occupational status: employed Cognitive needs: No Hearing needs: No Vision needs: Yes Female Reproductive History Menstrual Age of Menarche: 10 Questionnaire PHQ-9 Over the last 2 weeks, how often have you been bothered by any of the following problems? 1. Little interest or pleasure in doing things: not at all 2. Feeling down, depressed, or hopeless: not at all 3. Trouble falling or staying asleep, or sleeping too much: not at all 4. Feeling tired or having little energy: not at all 5. Poor appetite or overeating: not at all 6. Feeling bad about yourself - or that you are a failure or have let yourself or your family down: not at all 7. Trouble concentrating on things, such as reading the newspaper or watching television: not at all 8. Moving or speaking so slowly that other people could have noticed. Or the opposite - being so fidgety or restless that you have been moving around a lot more than usual: not at all 9. Thoughts that you would be better off or of hurting yourself in some way: not at all Total score: 0 Source: Developed by Drs. Tj Chapa, Juliet Vega, Jose Alejandro Chavez and colleagues, with an educational jean from [employer]. 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 What is your living situation today?: I have a steady place to live Within the past 12 months, did the food you bought not last and you didn't have the money to get more?: Never true Within the past 12 months, did you worry whether your food would run out before you got money to buy more?: Sometimes True Do you have trouble paying for medicines?: No Do you have trouble getting transportation to medical appointments?: No Do you have trouble paying your heating and electricity bill?: No Do you have trouble taking care of your child, family member or friend?: No Do you have trouble with day-to-day activities such as bathing, preparing meals, shopping, managing finances, etc.?: No Are you currently unemployed and looking for a job?: No Are you interested in more education?: I choose not to answer this question Please select the resources that you would like help with: None Currently or been in a relationship where the following occur: No concerns reported THRIVE Score: 1 AUDIT C Alcohol Use Questionnaire (AUDIT-C) 1. How often do you have a drink containing alcohol?: Never 3. How often do you have six or more drinks on one occasion?: Never Total Score: 0 KEMAR-7 AMB Questionnaire KEMAR-7 Date KEMAR - 7 assessed: 09/21/24 Feeling nervous, anxious, or on edge: 3 = Nearly every day Not being able to stop or control worryin = More than half the days Worrying too much about different things: 3 = Nearly every day Being so restless that it is hard to sit still: 0 = Not at all Becoming easily annoyed or irritable: 0 = Not at all Feeling afraid as if something awful might happen: 3 = Nearly every day Source: Developed by Drs. Tj Chapa, Juliet Vega, Jose Alejandro Chavez and colleagues, with an educational jean from [employer]. Review of Systems Const Denies chills, Denies fatigue, Denies fever(s), Denies headache(s), Denies malaise and Denies weakness Eyes Denies blurry vision, Denies change in vision, Denies irritation and Denies itchy eyes ENT Denies dysphagia, Denies dizziness, Denies otalgia, Denies headache(s), Denies nasal congestion, Denies neck pain, Denies odynophagia and Denies sore throat Card Denies rapid heart rate, Denies irregular heart rhythm, Denies palpitations and Denies dyspnea Resp Denies chest congestion, Denies cough, Denies dyspnea and Denies wheezing GI Denies abdominal pain, Denies bloating, Denies constipation, Denies dysphagia, Denies heartburn, Denies diarrhea, Denies nausea, Denies odynophagia and Denies vomiting Denies hematuria, Denies urinary frequency, Denies dysuria and Denies urinary urgency Musc Denies back pain, Denies arthralgias, Denies joint swelling, Denies muscle weakness and Denies neck pain Skin/Breast Denies change in pigmentation, Denies lesions, Denies rash and Denies unusual bruising Neuro Denies dizziness, Denies headache(s), Denies paresthesias and Denies weakness Psych Reports anxiety Endo Denies fatigue and Denies palpitations Aller/Immun Denies itchy eyes and Denies wheezing Physical exam (Primary Care) Vital Signs: Last Vital Signs Temp 97.0 F 03/01/25 15:57 Pulse 90 03/01/25 15:57 BP 136/68 03/01/25 15:57 Pulse Ox 97 03/01/25 15:57 Oxygen Delivery Method Room Air 03/01/25 15:57 BMI result Body Mass Index 25.1 Tobacco/Smoking Status: Tobacco use Status Tobacco use date assessed 03/01/25 03/01/25 16:01 Patient Tobacco Use Status Former Tobacco user 03/01/25 16:01 Tobacco use type Cigarette 03/01/25 16:01 e-Cigarette/Vaping Use Never Used 03/01/25 16:01 PHQ-9: PHQ-9 Score PHQ-9: Total score 0 03/01/25 16:22 Thrive Assessment: Date of Thrive Assessment Date Thrive assessed 09/14/24 03/01/25 16:01 Currently or been in a relationship where the following occur: No concerns reported Const General: cooperative, healthy appearing, comfortable and no acute distress Orientation/consciousness: patient oriented x3 HENMT Head: Yes normocephalic Ears: hearing grossly normal bilaterally General nose exam: Normal external nose present Eyes General: appearance normal, both eyes and all related structures Conjunctivae: conjunctivae normal Neck Neck: Yes full ROM and Yes no lymphadenopathy Resp Effort & Inspection: normal respiratory effort Auscultation: clear to auscultation bilaterally, no crackles, no rales, no rhonchi and no wheezes Cardio Rate: regular rate Rhythm: regular rhythm Skin General skin exam: no rashes or lesions noted Neuro General: patient oriented x3 Gait exam (Neuro): Normal gait present Extrem General: Yes normal to inspection, Yes full ROM and No edema Psych Affect: normal affect Attitude: cooperative Insight: Good insight present (Psych) Judgement: Good judgement present (Psych) Results Reviewed Results Reviewed: Laboratory Tests 02/01/25 09:18 WBC 4.8 RBC 4.56 Hgb 13.6 Hct 40.4 MCV 88.6 MCH 29.8 MCHC 33.7 RDW 12.0 Plt Count 227 MPV 10.3 Sodium 142 Potassium 4.1 Chloride 106 Carbon Dioxide 28 Anion Gap 12 BUN 15 Creatinine 0.68 Estimated GFR > 60 Fasting Glucose 92 Calcium 9.4 Total Bilirubin 0.5 AST 20 ALT 14 Alkaline Phosphatase 80 Total Protein 6.9 Albumin 4.2 Triglycerides 100 Cholesterol 204 H LDL Cholesterol, Calc 136 H HDL Cholesterol 48 25-OH Vitamin D Total 36.7 TSH 0.49 Coding Level of Care Code Est Pt Level 3 (07926) Diagnoses Hypertension, unspecified type I10 Hypertension type: unspecified Hyperlipidemia, unspecified hyperlipidemia type E78.5 Hyperlipidemia type: unspecified Hematuria, unspecified type R31.9 Hematuria type: unspecified type Anxiety F41.9 Substance abuse F19.10 Time Spent (min) 34 Assessment & Plan Assessment & Plan (1) HTN (hypertension): Code(s): I10 - Essential (primary) hypertension Category: Medical Qualifiers: Hypertension type: unspecified Qualified Code(s): I10 - Essential (primary) hypertension Plan: Blood pressure 136/68 Reinforced low-salt diet, low caffeine intake, low alcohol intake, and adequate hydration Continue lisinopril 20 mg daily (2) HLD (hyperlipidemia): Code(s): E78.5 - Hyperlipidemia, unspecified Category: Medical Qualifiers: Hyperlipidemia type: unspecified Qualified Code(s): E78.5 - Hyperlipidemia, unspecified Plan: The patient triglycerides 100, total cholesterol 204, LDL 136, HDL 48 Improved since last blood work in 2021. Patient wants to continue decreasing this naturally with lifestyle modifications Reinforced low-cholesterol diet and activity as tolerated We will repeat lipid panel in 4 months (3) Hematuria: Code(s): R31.9 - Hematuria, unspecified Category: Medical Qualifiers: Hematuria type: unspecified type Qualified Code(s): R31.9 - Hematuria, unspecified Plan: The patient had +1 blood in the urine in 2021 that has not been re-evaluated. Urinalysis was ordered with previous labs, but the patient was unable to go on the day she went for her labs. Encouraged the patient to complete this landon to re-evaluate. (4) Anxiety: Code(s): F41.9 - Anxiety disorder, unspecified Category: Medical Plan: Encouraged CBT Continue clonazepam 1 mg b.i.d. p.r.n. Follow up with addiction medicine as scheduled (Laisha LOPEZ) (5) Substance abuse: Code(s): F19.10 - Other psychoactive substance abuse, uncomplicated Category: Medical Plan: Continue Suboxone 8-2 mg 1-1/2 tab sublingual daily Follow up with the addiction Medicine as scheduled Orders: Orders Lipid Panel 4 Months E78.5 - Hyperlipidemia, unspecified, F41.9 - Anxiety disorder, unspecified, I10 - Essential (primary) hypertension TSH reflex Free T4 4 Months E78.5 - Hyperlipidemia, unspecified, F41.9 - Anxiety disorder, unspecified, I10 - Essential (primary) hypertension UA CC w/rflx Micro + Cult 4 Months E78.5 - Hyperlipidemia, unspecified, F41.9 - Anxiety disorder, unspecified, I10 - Essential (primary) hypertension Comprehensive [place]. Panel Fast 4 Months E78.5 - Hyperlipidemia, unspecified, F41.9 - Anxiety disorder, unspecified, I10 - Essential (primary) hypertension
[2025-03-01 15:57] VITALS: BP 136/68; PULSE 90; TEMP 36.1; O2SAT 97; BMI 25.1
--- OUTSIDE RECORDS SUMMARY | 2025-03-01 18:00 | XMS_ITS ---
Clinical Summary Created on: March 01, 2025 Abbey Jay
== END 2025-03-01 16:26 | disposition home or self-care (01) ==
LOC: HO.HMCH 15:48
PROVIDERS: PCP Internal Medicine
DX: I10 Essential (primary) hypertension (principal); E78.5 Hyperlipidemia, unspecified; F19.10 Other psychoactive substance abuse, uncomplicated; R31.9 Hematuria, unspecified; F41.9 Anxiety disorder, unspecified

== ENCOUNTER → 2025-03-01 15:47 | Outpatient (BNVA) | payer OTHER, SELFPAY | PROVIDERS: PCP Internal Medicine | DX: I10 Essential (primary) hypertension (principal); E78.5 Hyperlipidemia, unspecified; R31.9 Hematuria, unspecified; F41.9 Anxiety disorder, unspecified; F19.10 Other psychoactive substance abuse, uncomplicated | CPT/HCPCS: 99212 ==

== ENCOUNTER 2025-04-19 14:17 | Outpatient (REF) | payer OTHER, SELFPAY | END 2025-04-19 14:18 | disposition home or self-care (01) | LOC: HO.LNP 14:17 | PROVIDERS: Visit Provider Obstetrics & Gynecology | DX: Z01.419 Encounter for gynecological examination (general) (routine) without abnormal findings (principal); Z11.51 Encounter for screening for human papillomavirus (HPV) | CPT/HCPCS: 87626; 88175; 99396 ==

== ENCOUNTER 2025-04-19 14:17 | Outpatient (AMB) | payer OTHER, SELFPAY ==
--- NOTE | 2025-04-19 14:22 | A.OFFVIS_ITS ---
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 No complaints. Last Pap/HPV was negative in 07/02, this was preceded by Pap negative/HPV positive in 05/30 followed by colpo biopsy ECC which was negative Last Mammogram was BI-RADS 2 in 09/29 Last Colonoscopy was 8 years ago, the recommendation was to repeat in 10 years [facility] Medical History (Updated 04/19/25 @ 14:44 by Ian Chu MD) Substance abuse ANGELIA III (vulvar intraepithelial neoplasia III) Dysplasia of cervix, low grade (BONG 1) HTN (hypertension) Surgical History History of colonoscopy Social History Housing: Apartment Alcohol intake: current Alcohol intake frequency: holidays/special occasions only Patient Tobacco Use Status: Former Tobacco user Tobacco use type: Cigarette e-Cigarette/Vaping Use: Never Used Second Hand Smoke Exposure: No Patient : No service: No Current occupational status: employed Cognitive needs: No Hearing needs: No Vision needs: Yes Female Reproductive History Menstrual Age of Menarche: 10 Date of last pap smear: 07/09/22 (negative pap smear, negative hpv ) Date of Mammogram: 09/19/21 (bi rad 2) Review of Systems Const All systems reviewed & are unremarkable except as noted in HPI and below Card Reports as per HPI Resp Reports as per HPI GI Reports as per HPI and Reports no additional complaints Reports as per HPI Physical Exam Vital Signs: Last Vital Signs BP 130/78 04/19/25 14:28 BMI result Body Mass Index 24.7 Const General: cooperative, healthy appearing and comfortable Chest Chest palpation & inspection: normal inspection of the chest and normal palpation of entire chest wall Breast/axilla inspection: normal inspection of the breasts and normal inspection of the axillae Breast/axilla palpation: normal palpation of the breasts, normal palpation of the axillae and no axillary lymphadenopathy Resp Effort & Inspection: normal respiratory effort Auscultation: clear to auscultation bilaterally Percussion: percussion normal Cardio Palpation: normal PMI Rate: regular rate Rhythm: regular rhythm Heart sounds: no murmurs and no rubs Peripheral pulses: Peripheral pulses 2+ throughout GI Inspection: Yes normal to inspection Palpation (GI): Soft to palpation, nontender, no guarding, not rigid and No hepatosplenomegaly present Percussion: Yes normal to percussion Auscultation: normal bowel sounds Rectal Exam - Female: deferred General: Yes bladder normal to palpation External Female Exam: No lesion Speculum Exam - Vagina: normal appearance of the vagina, normal palpation, normal vaginal discharge and not erythematous Speculum Exam - Cervix: normal appearance of the cervix and normal palpation Bimanual exam- vagina & uterus: normal bimanual exam, normal palpation, uterine size normal, bladder normal to palpation, consistency normal and normal palpation Bimanual Exam- Adnexa, other: normal adnexae, no masses and no tenderness Assessment & Plan Assessment & Plan (1) Well woman exam: Code(s): Z01.419 - Encounter for gynecological examination (general) (routine) without abnormal findings Category: Medical Plan: Co testing done. Counseled the patient about the recommended dietary allowance of 1200 mg of Calcium & 600 IU of vitamin D. Mammogram ordered. Instructions given to patient to inspect regularly her perineal area and to report back for any hard areas, nonhealing ulcer on any irritation. The patient was instructed to perform monthly self-breast exams and schedule annual exam in a year. All questions answered and the patient verbalized understanding. Orders: Orders MM tomosynthesis screening BI Today Z12.31 - Encounter for screening mammogram for malignant neoplasm of breast Coding Level of Care Code Est Pt Prev Care 40-64y(36824) Diagnoses Well woman exam Z01.419
[2025-04-19 14:28] VITALS: BP 130/78; BMI 24.7
--- OUTSIDE RECORDS SUMMARY | 2025-04-19 16:40 | XMS_ITS | Clinical Summary ---
Author Organization [address] Address [address] [place] [id number] Phone Care Team Providers Care Revenue Specialist Name Role Phone Priyank Santiago MD Primary Care Provider [phone] Allergies Active Allergy Reactions Criticality Noted Date [...] Shingrix (RZV) 2 Dose Standard Series) 02/23/2014 Influenza vaccine 01/08/2025 Covid-19 vaccine series (1 - season) 2025 Tetanus adult (Td q 10,TDAP once) 12/14/2027 018 RSV Immunization (1 - 1-dose 75+ series) 02/23/2039 Meningococcal B Vaccine Aged Out No l onger eligible based on patient's age to complete this topic Meningococcal Vaccine Aged Out No walter harshil eligible based on patient's age to complete this topic Insurance [id number] MEDICAID [id number] MEDICAID [id number] MEDICAID Care Teams Revenue Specialist Relationship Specialty Start Date End Date Priyank Santiago MD [address] [place] [address] [place] [phone] PCP - General Internal Medicine 12/13/17
== END 2025-04-19 14:57 | disposition home or self-care (01) ==
LOC: HO.HWS 14:18
PROVIDERS: Visit Provider Obstetrics & Gynecology
DX: Z01.419 Encounter for gynecological examination (general) (routine) without abnormal findings (principal)
CPT/HCPCS: 99396; 99459

== ENCOUNTER 2025-05-24 11:36 | Outpatient (REF) | payer OTHER, SELFPAY ==
--- OUTSIDE RECORDS SUMMARY | 2025-05-24 17:51 | XMS_ITS | Clinical Summary ---
Author Organization [address] Address [address] [place] [phone] Phone Care Team Providers Care Signal Technician Name Role Phone Priyank Santiago MD Primary Care Provider [phone] Allergies Active Allergy Reactions Criticality Noted Date [...] patient's age to complete this topic Insurance [id number] [id number] MEDICAID [id number] MEDICAID Care Teams Signal Technician Relationship Specialty Start Date End Date Priyank Santiago MD [address] [place] [address] [place] [phone] PCP - General Internal Medicine 12/13/17
== END 2025-05-24 11:37 | disposition home or self-care (01) ==
LOC: HO.LNP 11:36
PROVIDERS: Visit Provider Obstetrics & Gynecology
DX: R87.610 Atypical squamous cells of undetermined significance on cytologic smear of cervix (ASC-US) (principal); R87.810 Cervical high risk human papillomavirus (HPV) DNA test positive
CPT/HCPCS: 88305

== ENCOUNTER 2025-05-24 11:36 | Outpatient (AMB) | payer OTHER, SELFPAY ==
--- NOTE | 2025-05-24 12:00 | A.OFFVIS_ITS ---
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 Adequacy: Definitive endocervical component not present. Interpretation: Atypical squamous cells of undetermined significance. HPV High Risk: Negative HPV Genotyping 16: Positive HPV Genotyping 18: Negative [facility] Medical History Substance abuse ANGELIA III (vulvar intraepithelial neoplasia III) Dysplasia of cervix, low grade (BONG 1) HTN (hypertension) Surgical History History of colonoscopy Social History Housing: Apartment Alcohol intake: current Alcohol intake frequency: holidays/special occasions only Patient Tobacco Use Status: Former Tobacco user Tobacco use type: Cigarette e-Cigarette/Vaping Use: Never Used Second Hand Smoke Exposure: No service: No Current occupational status: employed Cognitive needs: No Hearing needs: No Vision needs: Yes Female Reproductive History Menstrual Age of Menarche: 10 Physical Exam Vital Signs: Last Vital Signs BP 110/70 05/24/25 12:06 BMI result Body Mass Index 27.6 Office Procedures Colposcopy Colposcopy: Pre-Procedure Counseling: Before beginning the procedure, I conducted comprehensive counseling with the patient. We thoroughly discussed the procedure itself, including its details, alternatives, and all associated risks. This included but not limited to the following complications such as bleeding, infection, and injury to the vagina, bladder, and vessels, as well as the potential need for transfusion with all its associated risks. Subsequently, the patient sign the consent. Pap smear result: ASCUS HPV 16 positive Procedure: During the procedure, the following steps were performed: A speculum was inserted, and acetic acid was applied. Colposcopy was conducted, allowing visualization of the transformation zone. Acetowhite lesions were identified at the 7+ 11 o'clock position. Cervical biopsies were obtained from the 7+ 11 o'clock position, followed by an endocervical curettage (ECC). Vaginoscopy of the upper vagina revealed no evidence of aceto-white lesions. Hemostasis was achieved using Monsel solution, and the patient tolerated the procedure well. Post-Procedure Instructions: The patient was advised to promptly contact the office or the after hours answering service or go to the emergency room if experiencing a temperature exceeding 100.4?F, abdominal pain, nausea/vomiting, or bleeding. Additionally, the patient was instructed to abstain from vaginal intercourse and bathtub use. The patient confirmed understanding of these instructions. Discharge Instructions: The patient was instructed to schedule a follow-up appointment in 2 weeks for further evaluation and management. Please note that this note was generated using a voice recognition program, and errors may have occurred during computer aided design designer. [id number] of cervix including upper vagina with biopsy and ECC Procedure code (CPT) selection complete Assessment & Plan Assessment & Plan (1) ASCUS with positive high risk HPV cervical: Comment: HPV 16 positive Code(s): R87.610 - Atypical squamous cells of undetermined significance on cytologic smear of cervix (ASC-US); R87.810 - Cervical high risk human papillomavirus (HPV) DNA test positive Category: Medical Plan: Discussed with the patient the result of her abnormal pap, its significance, risk of progression, persistence, and regression. the false positive/negative rate of a Pap smear as a screening test in detecting cervical cancer and the indication for a diagnostic test -colposcopy, biopsy, endocervical curettage. The patient verbalized understanding and agreed with the plan, all questions answered. Colposcopy, biopsy /ECC done, see procedure note Orders: Orders AMB Colposcopy Today R87.610 - Atypical squamous cells of undetermined significance on cytologic smear of cervix (ASC-US), R87.810 - Cervical high risk human papillomavirus (HPV) DNA test positive Coding Level of Care Code Procedure Only Diagnoses ASCUS with positive high risk HPV cervical R87.610; R87.810 CPT Codes Colposcopy - CPT: 51081-[id number] of cervix including upper vagina with biopsy and ECC ([id number])
[2025-05-24 12:06] VITALS: BP 110/70; BMI 27.6
== END 2025-05-24 12:23 | disposition home or self-care (01) ==
LOC: HO.HWS 11:37
PROVIDERS: Visit Provider Obstetrics & Gynecology
DX: R87.610 Atypical squamous cells of undetermined significance on cytologic smear of cervix (ASC-US) (principal); R87.810 Cervical high risk human papillomavirus (HPV) DNA test positive
CPT/HCPCS: 57454